=== PATIENT | female | born 1935 | race Caucasian/White ===

== ENCOUNTER 2020-09-01 10:47 | Inpatient (IN) | payer OTHER ==
[~2020-09-01] VITALS: Ht 170.2 cm; Wt 72.8 kg
[2020-09-01 13:07] LABS: RED BLOOD COUNT 3.92 M/UL (4.00-5.10); WHITE BLOOD COUNT 9.5 K/UL (4.5-11.0)
[2020-09-02 02:44] LABS: HEMOGLOBIN 10.2 gm/dl (12.3-15.3); WHITE BLOOD COUNT 7.9 K/UL (4.5-11.0)
[2020-09-02 02:48] LABS: RED BLOOD COUNT 3.38 M/UL (4.00-5.10)
[2020-09-02] MEDS ORDERED: LISINOPRIL20 MG PO (09:52)
[2020-09-02] MEDS ORDERED: BYSTOLIC20 MG PO (09:53)
[2020-09-02] MEDS ORDERED: AMLODIPINE BESYL5 MG PO (09:53)
[2020-09-02] MEDS ORDERED: SINGULAIR10 MG PO (09:54)
[2020-09-02] MEDS ORDERED: FERROUS SULFAT325 MG PO (09:54)
[2020-09-02] MEDS ORDERED: LIPITOR20 MG PO (09:54)
[2020-09-02] MEDS ORDERED: OS-CAL 500+D31 EACH PO (09:55)
[2020-09-02] MEDS ORDERED: VITAMIN D325 MCG PO (09:55)
--- NOTE | 2020-09-02 16:06 | NUR ---
09/02/20 1535 REPORT CALLED TO [facility] 09/02/20 1610 TRANSPORTED TO ROOM [id number] VIA BED, BELONGINGS TAKEN WITH PATIENT
[2020-09-04] MEDS ORDERED: ELIQUIS 5 MG TAB5 MG PO (08:39)
[2020-09-04] MEDS ORDERED: BACTRIM DS TAB1 EACH PO (08:45)
[2020-09-04] MEDS ORDERED: AUGMENTIN 875-1 EACH PO (08:45)
== END 2020-09-04 14:07 | disposition home or self-care (01) | DRG 300 ==
LOC: ER1 10:47 → CDU 15:21 → M/S 15:21 → PROG CARE 19:30 → M/S 09-02 16:13
PROVIDERS: Emergency Medicine; Physician Assistant; ADMIT Internal Medicine
DX: I82.4Z2 Acute embolism and thrombosis of unspecified deep veins of left distal lower extremity (principal); L03.116 Cellulitis of left lower limb; E78.5 Hyperlipidemia, unspecified; Z20.822 Contact with and (suspected) exposure to COVID-19; N18.30 Chronic kidney disease, stage 3 unspecified; I12.9 Hypertensive chronic kidney disease with stage 1 through stage 4 chronic kidney disease, or unspecified chronic kidney disease; Z79.01 Long term (current) use of anticoagulants; Z88.6 Allergy status to analgesic agent; Z98.42 Cataract extraction status, left eye; Z98.41 Cataract extraction status, right eye; Z82.49 Family history of ischemic heart disease and other diseases of the circulatory system
CPT/HCPCS: 36415; 80048; 80053; 83605; 83735; 85025; 85610; 85652; 86140; 87040; 93971; 96374; 96375; 99284; J0692; J1644; J1650; J2020; J3370; J7030; J7050; U0002

== ENCOUNTER → 2020-11-26 | Outpatient (CLI) | payer MEDICARE ==
[~2020-11-26] MED LIST: AMLODIPINE BESYL5 MG PO; AUGMENTIN 875-1 EACH PO; BACTRIM DS TAB1 EACH PO; BYSTOLIC20 MG PO; ELIQUIS 5 MG TAB5 MG PO; FERROUS SULFAT325 MG PO; LIPITOR20 MG PO; LISINOPRIL20 MG PO; OS-CAL 500+D31 EACH PO; SINGULAIR10 MG PO; VITAMIN D325 MCG PO
== END ==
LOC: HEART 5 14:58
DX: I11.9 Hypertensive heart disease without heart failure (principal); I08.1 Rheumatic disorders of both mitral and tricuspid valves
CPT/HCPCS: 93306

== ENCOUNTER 2021-08-31 13:59 | Emergency (ER) | payer MEDICARE ==
[2021-08-31 19:18] LABS: HEMOGLOBIN 12.2 gm/dl (12.3-15.3); RED BLOOD COUNT 4.03 M/UL (4.00-5.10); WHITE BLOOD COUNT 8.6 K/UL (4.5-11.0)
[2021-08-31 19:32] LABS: BUN/CREATININE RATIO 11 (0-10)
== END 2021-08-31 22:40 | disposition home or self-care (01) ==
LOC: ER1 13:59
PROVIDERS: Physician Assistant
DX: S50.11XA Contusion of right forearm, initial encounter (principal); S60.221A Contusion of right hand, initial encounter; E87.6 Hypokalemia; E78.5 Hyperlipidemia, unspecified; I12.9 Hypertensive chronic kidney disease with stage 1 through stage 4 chronic kidney disease, or unspecified chronic kidney disease; Z86.718 Personal history of other venous thrombosis and embolism; Z88.5 Allergy status to narcotic agent; Z88.8 Allergy status to other drugs, medicaments and biological substances; Z79.01 Long term (current) use of anticoagulants; W22.8XXA Striking against or struck by other objects, initial encounter
CPT/HCPCS: 73130; 80048; 85025; 85379; 85610; 85730; 99283